=== PATIENT | male | born 1970 | race Caucasian/White ===

== ENCOUNTER → 2021-09-21 11:52 | Outpatient (BNVA) | payer OTHER, SELFPAY | PROVIDERS: Referring Provider Nurse Practitioner Family; Visit Provider Podiatrist Foot & Ankle Surgery | DX: M20.21 Hallux rigidus, right foot (principal); S99.191D Other physeal fracture of right metatarsal, subsequent encounter for fracture with routine healing; S92.901K Unspecified fracture of right foot, subsequent encounter for fracture with nonunion; M79.671 Pain in right foot; X58.XXXD Exposure to other specified factors, subsequent encounter | CPT/HCPCS: 73630; 99204; 99205 ==

== ENCOUNTER 2021-10-21 09:15 | Outpatient (CLI) | payer OTHER, BC, SELFPAY ==
--- NOTE | 2021-10-21 09:29 | USCV_ITS ---
Alireza De Leon Age: 51 Gender: M : 1970 Exam Date: 10/21/2021 09:45 Ordering Phys: Simón Nayak APRN, APRN Technologist: RUKHSANA [place] [facility] [place]ication: BLE PAIN Risk Factors: Previous Vascular Surgery: RIGHT LEFT BP: 143.0 / BP: 158.0/ 0 0 Waveform Velocity (cm/s) Velocity (cm/s) Waveform Triphasic 82.3 Iliac Prox 96.1 Triphasic Triphasic 95.7 Iliac Mid 100.5 Triphasic Triphasic 100.3 Iliac Distal 106.9 Triphasic Triphasic 59.8 OYSTER TONGER 113.5 Triphasic Triphasic 67.5 SFA Prox 107.0 Triphasic Triphasic 156.9 SFA Mid 0.0 N/A Biphasic SFA Dist Monophasic 203.1 190.0 Monophasic 42.7 POP 21.7 Monophasic Monophasic 42.2 DIRECTOR OF WORKFORCE DEVELOPMENT 47.9 Monophasic N/A 0.0 DPA 16.0 Monophasic FINDINGS UNABLE TO OBTAIN DALE'S/ RT DIRECTOR OF WORKFORCE DEVELOPMENT->220, RT DPA-NO FLOW LT DIRECTOR OF WORKFORCE DEVELOPMENT >220, LT DPA >220 REVERSED FLOW SEEN IN LEFT DPA Mild to moderate diffuse plaque in the iliac and femoral artery on the right side No Doppler flow signals in the left mid SFA. Heavy heterogeneous plaques in the distal SFA with the flow turbulence and velocity elevation. The posterior tibial artery Doppler examination revealed monophasic and continuous waveforms, bilaterally. Retrograde flow in the dorsalis pedis artery on the left side CONCLUSIONS 1. ABIs were not obtained because of the noncompressible vessels bilaterally the ankle 2. 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 Abnormal Doppler waveforms in the dorsalis pedis and posterior tibial arteries on this side, suggesting collateral filling of the posterior tibial artery and retrograde filling of the dorsalis pedis artery. 3. 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 No similar previous studies are available for comparison Dr Roger Mcgrath MD [facility] (Electronically Signed) Final Date: 21 October 2021 20:04 S
== END 2021-10-21 09:16 | disposition home or self-care (01) ==
PROVIDERS: Visit Provider Nurse Practitioner Family
DX: M79.605 Pain in left leg (principal); M79.604 Pain in right leg
CPT/HCPCS: 93925

== ENCOUNTER → 2021-11-02 11:06 | Outpatient (BNVA) | payer OTHER, BC, SELFPAY | PROVIDERS: Visit Provider Podiatrist Foot & Ankle Surgery | DX: S92.351A Displaced fracture of fifth metatarsal bone, right foot, initial encounter for closed fracture (principal); M19.071 Primary osteoarthritis, right ankle and foot; M20.21 Hallux rigidus, right foot; S92.909K Unspecified fracture of unspecified foot, subsequent encounter for fracture with nonunion; Y99.9 Unspecified external cause status | CPT/HCPCS: 73630; 99213; 99214 ==

== ENCOUNTER → 2021-12-21 08:58 | Outpatient (BNVA) | payer OTHER, SELFPAY | PROVIDERS: Visit Provider Podiatrist Foot & Ankle Surgery | DX: M20.21 Hallux rigidus, right foot (principal); S92.901K Unspecified fracture of right foot, subsequent encounter for fracture with nonunion; X58.XXXD Exposure to other specified factors, subsequent encounter | CPT/HCPCS: 73630; 99214 ==

== ENCOUNTER → 2022-01-25 08:42 | Outpatient (BNVA) | payer OTHER, SELFPAY | PROVIDERS: Visit Provider Podiatrist Foot & Ankle Surgery | DX: M20.21 Hallux rigidus, right foot (principal); S99.191K Other physeal fracture of right metatarsal, subsequent encounter for fracture with nonunion; X58.XXXD Exposure to other specified factors, subsequent encounter | CPT/HCPCS: 73630; 99214 ==

== ENCOUNTER → 2022-03-15 10:58 | Outpatient (BNVA) | payer OTHER, SELFPAY | PROVIDERS: Visit Provider Podiatrist Foot & Ankle Surgery | DX: S99.191K Other physeal fracture of right metatarsal, subsequent encounter for fracture with nonunion (principal); S92.901K Unspecified fracture of right foot, subsequent encounter for fracture with nonunion; X58.XXXD Exposure to other specified factors, subsequent encounter; M20.21 Hallux rigidus, right foot | CPT/HCPCS: 73630; 99214 ==

== ENCOUNTER → 2022-08-08 14:50 | Outpatient (BNVA) | payer OTHER, SELFPAY | PROVIDERS: Visit Provider Nurse Practitioner Family | DX: L81.4 Other melanin hyperpigmentation (principal); Z85.828 Personal history of other malignant neoplasm of skin; Z72.0 Tobacco use; D22.5 Melanocytic nevi of trunk; Z71.89 Other specified counseling; L85.3 Xerosis cutis; L57.8 Other skin changes due to chronic exposure to nonionizing radiation; L57.0 Actinic keratosis | CPT/HCPCS: 17004; 99213 ==

== ENCOUNTER 2022-10-05 15:12 | Emergency (ER) | payer OTHER, SELFPAY ==
[2022-10-05 15:16] VITALS: BP 131/77; PULSE 102; RESP 17; O2SAT 95
--- NOTE | 2022-10-05 15:21 | XR_ITS ---
WS: [id number] Exam: XR elbow RT min 3V* [id number] Date/Time of Exam: 10/05/2022 3:26 PM Reason For Exam: Pain There is mild cortical irregularity of the lateral margin of the radial head which may be secondary t o previous trauma. This does not have the appearance of an acute fracture. The remainder of the right elbow is intact. No joint effusion. Mild tendinous spurring seen along the lateral humeral epicondyl e. XR/XR elbow RT min 3V* [id number] IMPRESSION: 1. Slight cortical irregularity of the lateral margin of the radial head that d oes not have the appearance of an acute fracture. This could be secondary to pr ior trauma. 2. No acute fracture is suspected. No joint effusion.
--- NOTE | 2022-10-05 15:44 | W.ED.EXTPRO ---
HPI - Extremity Problem General: Chief complaint: Extremity Injury, Upper Stated complaint: right arm pain Time Seen by Provider: 10/05/22 15:21 Source: patient Mode of arrival: ambulatory History of Present Illness: 52-year-old male presents emergency room with complaint of right elbow pain he was rolling a log into a tractor. Arm flexed at the elbow and he felt a popping sensation in the area of the antecubital fossa. He had no direct trauma or fall. Began having pain with any pronation or supination. No other injury. MD Complaint: joint pain Pain Consistency: constant Location: right and elbow Quality: sharp Relieving factors: immobilization Exacerbating factors: range of motion and palpation Associated symptoms: Deny arthralgias, chest pain, fever(s), myalgias, rash or short of breath Review of Systems Const: Denies: fever(s) or chills Card: Denies: chest pain Resp: Denies: dyspnea, productive cough or non-productive cough GI: Denies: abdominal pain Musc: Reports: joint pain Skin/Breast: Denies: rash PFSH ED PFSH: Medical History Anxiety Depression GERD (gastroesophageal reflux disease) Hyperlipidemia Hypertension Hypertension Restless leg Surgical History Hx of hernia repair No pertinent past surgical history Family History Father CAD (coronary artery disease) Chronic kidney disease (CKD) Hypertension Grandfather Cancer Mother Diabetes Hypertension Denies family history of Clotting disorder Anesthesia complication Bleeding disorder Stroke Social History Smoking and tobacco status: current every day smoker cigarettes Packs smoked per day: 1.5 Years cigarettes smoked: 30 Second hand smoke exposure: No Alcohol intake: current Alcohol intake frequency: few times a month Alcohol type: beer and hard liquor Substance/Drug Use: never Adopted: No Caregiver/support person: Yes Lives independently: Yes Household members: none Marital status: service: Yes status: Medically Discharged/Retired branch: [employer] Current gender identity: Male Special breanne needs: No Physical Exam Const: COMMON NORMALS: no acute distress GENERAL APPEARANCE: cooperative and comfortable ORIENTATION/CONSCIOUSNESS: Yes awake, Yes oriented to person, Yes oriented to place and Yes oriented to time HENMT: COMMON NORMALS: normocephalic, atraumatic and hearing grossly normal bilaterally HEAD & SCALP: normocephalic and atraumatic Extremity: OTHER: Right elbow mild swelling patient is able to flex and extend but has moderate discomfort neurovascularly intact no obvious deformities Neuro: SENSORIUM/ORIENTATION: Yes oriented to person, Yes oriented to place and Yes oriented to time Skin: COMMON NORMALS: no rashes or lesions noted GENERAL SKIN EXAM: no rashes or lesions noted Course Vital Signs: Vital signs: Vital Signs Pulse Rate 112 H 10/05/22 15:57 Respiratory Rate 16 10/05/22 15:57 Blood Pressure 118/72 10/05/22 15:57 Pulse Oximetry 90 10/05/22 15:57 Oxygen Delivery Me thod Room Air 10/05/22 15:57 MDM - Extremity (Nontraumatic) Medical Decision Making Slight cortical irregularity on the lateral portion of the radial head. Patient refers most of the pain to the antecubital fossa no obvious deformity we will place him in a arm sling and follow-up with orthopedics may require further evaluation and possible advanced imaging pending their evaluation. Medical Records I reviewed the patient's medical records. Lab Data I reviewed the patient's lab results. Radiology Impressions Elbow X-Ray 10/05/22 15:21 IMPRESSION: 1. Slight cortical irregularity of the lateral margin of the radial head that does not have the appearance of an acute fracture. This could be secondary to prior trauma. 2. No acute fracture is suspected. No joint effusion. Discharge Plan Discharge Patient Disposition: Home Clinical Impression: Elbow pain, right Condition: Stable Prescriptions: New diclofenac sodium 75 mg tablet,delayed release (DR/EC) 75 mg PO Q12H PRN (Reason: pain) Qty: 20 0RF Discontinued diclofenac sodium 1 % gel 2 g topical QID Rx Instructions: apply to single elbow, wrist or hand; for hand includes palm/fingers/back of hand No Action atorvastatin 40 mg tablet 40 mg PO DAILY buspirone 10 mg tablet 10 mg PO DAILY cilostazol 50 mg tablet 50 mg PO BID ropinirole 5 mg tablet 5 mg PO DAILY venlafaxine 75 mg tablet 75 mg PO DAILY lisinopril 40 mg tablet 40 mg PO DAILY omeprazole 20 mg capsule,delayed release(DR/EC) 20 mg PO DAILY cyclobenzaprine 30 mg capsule,extended release 24hr 30 mg PO DAILY PRN lidocaine-epinephrine 1 %-1:100,000 solution 3 ml SUBCUT ONCE Qty: 20 0RF metformin 500 mg tablet 500 mg PO DAILY chlorthalidone 25 mg tablet 25 mg PO DAILY metoprolol succinate 25 mg tablet extended release 24 hr 25 mg PO DAILY PRN (DME) Bone stimulator See Rx Instructions .Route .MEDSUPPLY Qty: 1 0RF Rx Instructions: As directed (DME) low profile sport custom insoles with a mortons extension grafite See Rx Instructions .Route .MEDSUPPLY Qty: 1 0RF Rx Instructions: As directed Discharge Orders: Discharge ED (Routine); Ordered 10/05/22 Ordered By: Matt Flores Discharge Activity: Limit activity as instructed Patient Instructions: Opioid Safety, Pain Management Activity Restrictions/Additional Instructions: Recommend you wear the sling until evaluated by orthopedics. Use oral diclofenac instead of the topical 1 every 12 hours as needed Case management make arrangements for follow-up with orthopedic clinic. Coding Level of Care Code ED Graduate Assistant Athletic Trainer for Stanton Rasheed
[2022-10-05 15:57] VITALS: BP 118/72; PULSE 112; RESP 16; O2SAT 90
--- NOTE | 2022-10-06 10:39 | DCPLANNER ---
Addendum entered by Sophia Izquierdo 10/20/22 10:38: Patient had a follow up appointment scheduled with ortho - patient did attend appointment. Addendum entered by Sophia Izquierdo 10/10/22 13:34: Patient has a follow up appointment scheduled for Thursday, October 13, 2022 at 8:[address] Pal at ortho. Original Note: newspaper manager had message to schedule a follow up appointment for patient with ortho. newspaper manager sent patients information to the front office staff at ortho. Patients information will be printed and reviewed. Clinic will call patient with appointment information
--- NOTE | 2022-10-06 13:25 | DCPLANNER ---
district manager major accounts sales called patient due to no primary care physician - [facility]
== END 2022-10-05 16:05 | disposition home or self-care (01) ==
PROVIDERS: Emergency Provider Family Medicine
DX: M25.521 Pain in right elbow (principal); Z79.84 Long term (current) use of oral hypoglycemic drugs; E78.5 Hyperlipidemia, unspecified; I10 Essential (primary) hypertension; F17.210 Nicotine dependence, cigarettes, uncomplicated
CPT/HCPCS: 73080; 99283

== ENCOUNTER → 2022-12-11 08:42 | Outpatient (BNVA) | payer OTHER, SELFPAY | PROVIDERS: Visit Provider Podiatrist Foot & Ankle Surgery | DX: M72.2 Plantar fascial fibromatosis (principal); M20.21 Hallux rigidus, right foot; M20.22 Hallux rigidus, left foot | CPT/HCPCS: 99213 ==

== ENCOUNTER → 2023-02-06 09:07 | Outpatient (BNVA) | payer OTHER, SELFPAY | PROVIDERS: PCP Family Medicine; Visit Provider Nurse Practitioner Family | DX: L57.0 Actinic keratosis (principal); Z85.828 Personal history of other malignant neoplasm of skin; L81.4 Other melanin hyperpigmentation; D22.5 Melanocytic nevi of trunk; L85.3 Xerosis cutis | CPT/HCPCS: 17000; 99213 ==

== ENCOUNTER → 2023-09-25 08:52 | Outpatient (BNVA) | payer OTHER, SELFPAY | PROVIDERS: PCP Family Medicine; Visit Provider Dermatology | DX: C44.41 Basal cell carcinoma of skin of scalp and neck (principal) | CPT/HCPCS: 13132; 17311 ==

== ENCOUNTER 2023-11-20 10:31 | Outpatient (CLI) | payer OTHER, SELFPAY ==
--- NOTE | 2023-11-20 10:34 | MR_ITS ---
WS: [id number] MRI LUMBAR SPINE NONCONTRAST TECHNIQUE: Sagittal T1, T2 and STIR imaging. Axial T1 and T2 imaging. CLINICAL INFORMATION: WORSENING LOW BACK PAIN W/SCIATICA FINDINGS: Mild lumbar curve. No acute compression. Mild disc bulging worse at L3-L5. Endplate degenerative moralez ges inferior plate L3. L1-L2: Mild annular bulging. Slight narrowing the RIGHT subarticular recess. Mild facet arthropathy. Mild RIGHT foraminal narrowing. L2-L3: Mild annular bulging. Small RIGHT foraminal protrusion with mild RIGHT foraminal narrowing. Im pingement on the exiting RIGHT L2 nerve root. Mild facet arthropathy. L3-L4: Mild annular bulging. Mild central canal stenosis with narrowing of the subarticular recesses RIGHT greater than LEFT. RIGHT foraminal protrusion impinges the exiting RIGHT L3 nerve root. Mild LE FT foraminal narrowing. Moderate facet arthropathy. L4-L5: Shallow central disc bulging with mild central canal stenosis. Moderate facet arthropathy. LEF T foraminal protrusion with mild LEFT foraminal narrowing. Moderate facet arthropathy. L5-S1: LEFT eccentric disc bulging slightly impinges the exiting LEFT L5 nerve roots with mild LEFT f oraminal narrowing. Mild RIGHT foraminal narrowing. Spinal canal is patent. Moderate facet arthropath y. Visualized pelvic bony structures: Normal. Paravertebral soft tissues: Normal. Partially visualized LEFT renal cyst. MR/MR lumbar spine wo con* [id number] IMPRESSION: 1. Mild lumbar curve. No acute compression. 2. Mild central canal stenosis L3-L4 and L4-L5 due to disc bulging in combinat ion with facet arthropathy and prominent epidural fat. Narrowing of the thecal sac at these levels. Impingement on the LEFT greater than RIGHT subarticular re cess L4-5 with a shallow central protrusion. Narrowing of the RIGHT L3-4 subart icular recess. 3. RIGHT foraminal protrusion L3-4 with impingement on the exiting RIGHT L3 ne rve root. 4. Small LEFT foraminal protrusion L4-5 slightly impinges the exiting LEFT L4 nerve root. 5. Narrowing of the RIGHT L1-2 subarticular recess with a tiny RIGHT subarticu lar protrusion. 6. RIGHT foraminal protrusion L2-3 impinges the exiting RIGHT L2 nerve root. 7. Mild LEFT L5-S1 foraminal narrowing slightly impinges the exiting L5 nerve root.
== END 2023-11-20 10:32 | disposition home or self-care (01) ==
LOC: RAD 10:32
PROVIDERS: PCP Family Medicine; Visit Provider Family Medicine
DX: M51.36 Other intervertebral disc degeneration, lumbar region (principal); M47.896 Other spondylosis, lumbar region; M47.898 Other spondylosis, sacral and sacrococcygeal region
CPT/HCPCS: 72148

== ENCOUNTER → 2024-01-10 14:13 | Outpatient (BNVA) | payer OTHER, SELFPAY | PROVIDERS: PCP Family Medicine; Visit Provider Orthopaedic Surgery | DX: M54.50 Low back pain, unspecified (principal); Z09 Encounter for follow-up examination after completed treatment for conditions other than malignant neoplasm; M48.062 Spinal stenosis, lumbar region with neurogenic claudication | CPT/HCPCS: 72110; 99205 ==

== ENCOUNTER 2024-01-23 10:55 | Outpatient (CLI) | payer OTHER, SELFPAY ==
[2024-01-23 11:50] LABS: Bilirubin Urine Negative (Negative); Blood Urine Negative (Negative); Glucose Urine UA 3+ (Normal); Ketones Urine Negative (Negative); Leukocyte Esterase Urine Negative (Negative); Nitrate Urine Negative (Negative); Protein Urine Negative (Negative); Specific Gravity, Urine 1.021 (1.005-1.030); Urine Appearance Clear (CLEAR); Urine Color Yellow (Yellow); Urobilinogen Urine 0.2 mg/dL (Negative); pH Urine 5.5 (5-7)
[2024-01-23 11:55] LABS: Add Urine Microscopic? YES; Bacteria Urine None Seen /hpf; Hyaline Casts Urine 0.81 /lpf; RBC Urine 0-2 /hpf (0-2); Squamous Epithelial Cell Urine 0-5 /hpf (0-5); WBC Urine 0-5 /hpf (0-5)
[2024-01-23 12:00] LABS: Alanine Aminotransferase 32 U/L (0-41); Albumin Level 4.9 g/dL (3.5-5.2); Alkaline Phosphatase 77 U/L (40-130); Anion Gap 15.4 (5-19); Aspartate Amino Transferase 19 U/L (0-40); Blood Urea Nitrogen 25 mg/dL (6-20); Calcium 9.8 mg/dL (8.5-10.5); Carbon Dioxide 25 mmol/L (22-29); Chloride 100 mmol/L (98-107); Estmated Average Glucose 148; Glomerular Filtration Rate 45.1 mL/min (90-130); Glucose 131 mg/dL (65-115); Hemoglobin A1C 6.8 % (4.0-6.0); Osmolality Calculated 288 mOsm/kg (285-295); Potassium 4.4 mmol/L (3.5-5.1); Sodium 136 mmol/L (136-145); Total Bilirubin 0.3 mg/dL (0.15-1.2); Total Protein 6.9 g/dL (6.6-8.7)
[2024-01-23 12:35] LABS: Basophils # 0.1 10^3/uL (0.0-0.1); Basophils % 0.6 %; Eosinophils # 0.2 10^3/uL (0.0-0.8); Lymphocytes # 2.1 10^3/uL (0.8-4.8); Lymphocytes % 20.6 %; Mean Corpuscular HGB Conc 33.7 g/dL (30-55); Mean Corpuscular Hemoglobin 29.5 pg (27-33); Mean Corpuscular Volume 87.6 fl (82-101); Mean Platelet Volume 10.5 fL (7.4-10.4); Monocytes # 0.6 10^3/uL (0.2-0.9); Monocytes % 5.3 %; Neutrophils # 7.37 10^3/uL (1.8-7.7); Neutrophils % 71.1 %; Nucleated Red Blood Cells % 0 %; Platelet Count 243 10^3/cmm (157-399); Red Blood Count 5.25 10^6/uL (3.85-5.65); Red Cell Distribution Width 13.7 % (12.1-15.1); White Blood Count 10.36 10^3/uL (3.29-11.43)
== END 2024-01-23 10:56 | disposition home or self-care (01) ==
PROVIDERS: PCP Family Medicine; Visit Provider Orthopaedic Surgery
DX: M54.9 Dorsalgia, unspecified (principal)
CPT/HCPCS: 36415; 80053; 81001; 83036; 85025

== ENCOUNTER → 2024-02-06 09:42 | Outpatient (BNVA) | payer OTHER, SELFPAY | PROVIDERS: PCP Family Medicine; Visit Provider Family Medicine | DX: Z01.818 Encounter for other preprocedural examination (principal) | CPT/HCPCS: 93005 ==

== ENCOUNTER → 2024-02-11 13:27 | Outpatient (BNVA) | payer OTHER, SELFPAY | PROVIDERS: PCP Family Medicine; Visit Provider Nurse Practitioner Family | DX: L81.4 Other melanin hyperpigmentation (principal); L57.8 Other skin changes due to chronic exposure to nonionizing radiation; D22.5 Melanocytic nevi of trunk; B07.8 Other viral warts; L53.8 Other specified erythematous conditions; L29.89 Other pruritus; D48.5 Neoplasm of uncertain behavior of skin; L57.0 Actinic keratosis | CPT/HCPCS: 11102; 17000; 17110; 99213 ==

== ENCOUNTER 2024-02-18 05:38 | Day surgery (SDC) | payer OTHER, SELFPAY ==
[2024-02-18] VITALS (13 sets, daily range): BP systolic 107–137; BP diastolic 63–82; PULSE 61–81; RESP 12–22; TEMP 36.2–37.2; O2SAT 92–97; BMI 34.8
[2024-02-18 06:22] LABS: Glucose Point of Care 158 mg/dL (70-110)
[2024-02-18] MEDS: sodium chloride 0.9% 1,000 ML 30 ML IV (06:25)
--- NOTE | 2024-02-18 06:29 | P.ANESASSM_ITS ---
Pre-Anesthetic Assessment Height/Weight: Height 5 ft 11 in Weight 250 lb Temp Pulse Resp BP Pulse Ox O2 Del Method 97.2 F L 61 18 110/69 96 Room Air 02/18/24 06:14 02/18/24 06:14 02/18/24 06:14 02/18/24 06:14 02/18/24 06:14 02/18/24 06:14 Preop Diagnosis: Lumbar stenosis with neurogenic claudication Operation Date: 02/18/24 07:00 Proposed Procedures p Lumbar Spine Decompression Lumbar Decompression(Not Applicable) - Harlan Quiros, DO Was Beta Flower taken within 24 hours: N/A Was Clonidine taken within 24 hours: N/A Last intake: Intake Last Liquid Date 02/17/24 Last Liquid Time 19:00 Last Solid Date 02/17/24 Last Solid Time 19:00 Social Alcohol and Tobacco Weekend drinker Exam alert, oriented x 3 and regular rate & rhythm Diminished breath sounds bilaterally Airway Submandibular: within normal limits Cervical ROM: within normal limits Mallampati: Class III Dentition: full Comments: Comments: Large reyes Anesthetic Plan ASA status: 3 Anesthesia: General Other: No prior issues with anesthesia NPO since yesterday Patient has a history of hypertension on chlorthalidone, lisinopril and metoprol ol. Type 2 diabetes on glipizide and metformin, no insulin. Preop BS 158 Labs 01/23/2024 reviewed and acceptable for procedure EKG showing probable old anterior [place], sinus rhythm Current smoker Plan for GETA Medications/Allergies Home Medications Medication Instructions Recorded Confirmed Last Taken Type cyclobenzaprine 30 mg 30 mg PO DAILY 03/02/21 02/18/24 2 Weeks Ago History capsule,extended release 24 hr ~02/04/24 lisinopril 40 mg tablet 40 mg PO DAILY 03/02/21 02/13/24 02/17/24 History buspirone 10 mg tablet 10 mg PO DAILY 05/13/21 02/13/24 02/17/24 History cilostazol 50 mg tablet 50 mg PO BID 05/13/21 02/18/24 2 Weeks Ago History ~02/04/24 ropinirole 5 mg tablet 5 mg PO DAILY 05/13/21 02/18/24 1 Week Ago History ~02/11/24 venlafaxine 75 mg tablet 75 mg PO DAILY 05/13/21 02/13/24 02/17/24 History Bone stimulator #1 ea 11/23/21 01/10/24 Unknown Rx low profile sport custom insoles #1 ea 11/23/21 01/10/24 Unknown Rx with a mortarnulfo extension nadeem chlorthalidone 25 mg tablet 25 mg PO DAILY 01/09/22 02/13/24 02/17/24 History metformin 500 mg tablet 500 mg PO DAILY 01/09/22 02/13/24 02/15/24 History diclofenac sodium 75 mg 75 mg PO Q12H PRN pain #20 tabs 10/05/22 02/18/24 02/16/24 Rx tablet,delayed release Custom Co-poly Insoles #1 ea 03/01/23 01/10/24 Unknown Rx aspirin 81 mg tablet,delayed 81 mg PO DAILY 02/06/24 02/18/24 2 Weeks Ago History release ~02/04/24 cetirizine 10 mg tablet 10 mg PO DAILY PRN Allergic 02/06/24 02/13/24 02/17/24 History Symptoms clopidogrel 75 mg tablet 75 mg PO DAILY 02/06/24 02/13/24 02/13/24 History empagliflozin 10 mg tablet 10 mg PO DAILY 02/06/24 02/13/24 02/16/24 History fexofenadine 180 mg tablet 180 mg PO DAILY 02/06/24 02/13/24 02/17/24 History fluticasone propionate 50 1 spray intranasal DAILY 02/06/24 02/18/24 1 Week Ago History mcg/actuation nasal ~02/11/24 spray,suspension glipizide 10 mg tablet 10 mg PO DAILY 02/06/24 02/13/24 02/15/24 History metoprolol succinate 25 mg 25 mg PO DAILY 02/06/24 02/13/24 02/17/24 History tablet,extended release 24 hr pantoprazole 40 mg tablet,delayed 40 mg PO DAILY 02/06/24 02/18/24 02/16/24 History release rosuvastatin 10 mg tablet 10 mg PO DAILY 02/06/24 02/13/24 02/17/24 History tamsulosin 0.4 mg capsule 0.4 mg PO DAILY 02/06/24 02/13/24 02/17/24 History gemfibrozil 600 mg tablet 600 mg PO BID 02/18/24 02/18/2424 History Allergies Allergy/AdvReac Type Severity Reaction Status Date / Time No Known Allergies Allergy Verified 02/06/24 09:58 Current Medications Generic Name Dose Route Start Last Admin Trade Name Safia PRN Reason Stop Dose Admin Sodium Chloride 1,000 mls @ 30 mls/hr 02/18/24 06:00 02/18/24 06:25 Sodium Chloride 0.9% IV 02/19/24 05:59 30 mls/hr .Q24H GEORGE Administration PFSH Anesthesia Medical History Hypertension Hyperlipidemia Depression Anxiety Restless leg GERD (gastroesophageal reflux disease) Hypertension Surgical History No pertinent past surgical history Hx of hernia repair Family History Father CAD (coronary artery disease) Chronic kidney disease (CKD) Hypertension Grandfather Cancer Mother Diabetes Hypertension Denies family history of Clotting disorder Anesthesia complication Bleeding disorder Stroke Social History Smoking and tobacco/nicotine status: never used tobacco/nicotine Second hand smoke exposure: No Alcohol intake: current Alcohol intake frequency: few times a month Alcohol type: beer and hard liquor Substance/Drug Use: never Adopted: No Caregiver/support person: Yes Lives independently: Yes Household members: none Marital status: service: Yes status: Medically Discharged/Retired branch: [employer] Current gender identity: Male Special breanne needs: No Data Anesthesia Cardiac Studies: No Data to Display
--- NOTE | 2024-02-18 06:32 | W.PM.OPSUD ---
Surgery/Procedure H&P Update DATE OF PROCEDURE: February 18, 2024 DATE H&P PERFORMED: 02/06/24 H&P UPDATE INFORMATION: I have reviewed H&P completed within last 30 days, I have examined patient prior to procedure and No changes to prior documentation PREOP DIAGNOSIS: Lumbar stenosis with neurogenic claudication PLANNED PROCEDURE: Operation Date: 02/18/24 07:00 Proposed Procedures p Lumbar Spine Decompression Lumbar Decompression(Not Applicable) - Harlan Quiros DO
[2024-02-18] MEDS: ceFAZolin 2,000 mg SDV 2000 MG IVP (07:01)
[2024-02-18] MEDS: lidocaine-epi 1% 20 mL INJ 10 ML INJECTION (07:36)
--- NOTE | 2024-02-18 09:01 | P.OP_ITS ---
Operative Report Date of procedure: February 18, 2024 Pre-op diagnosis: Lumbar stenosis with neurogenic claudication Post-op diagnosis: same Procedure done: 1. L3-4 laminectomy with partial facetectomy 2. L4-5 laminectomy with partial facetectomy 3. L5-S1 laminectomy with partial facetectomy Surgeon: Harlan Quiros DO Estimated blood loss (mL): 20 Procedure: 1. L3-4 laminectomy with partial facetectomy 2. L4-5 laminectomy with partial facetectomy 3. L5-S1 laminectomy with partial facetectomy Patient is brought to the operative suite. After undergoing anesthesia they are placed in the prone position. All areas of impingement are well padded. Patient is then prepped and draped in the normal sterile fashion. A skin incision is made over the L3/4 level. This is confirmed under c-arm guidance. A series of dilators are passed and the tubular retractor is docked on the L3 lamina. A bovie is used to clear the soft tissue off the lamina and the L 3/4 facet joint. A high speed yolanda is then used to perform the laminectomy and take down the medial aspect of the L 3/4 facet joint. A kerrison rongeure was then used to take down the remaining lamina and smooth the edge of the laminectomy up to the point where the ligamentum flavum attaches. Attention was then brought to the medial aspect of the facet joint. The remaining medial aspect of the superior and inferior aspect of the facet joint were taken down with the kerrison from the pedicle of L3 to L 4. The facet lia int had significant hypertrophy. Attention was then brought to the Ligamentum Flavum. The ligament was taken down from the lamina of L3 to L4 and out medially to the remaining facet joint. The ligament was thick. The dura was then exposed. The dura was in good repair. The L3 nerve was then traced with a curette out the L3/4 foramen and found to be adequately decompressed. The L4 nerve was traced with a curette around the L4 pedicle. The lateral recess was opened with a kerrison helping to further decompress the L4 nerve. Wound is then irrigated copiously with saline and surgiflo is used to stop any bleeding. The tubular retractor is removed A skin incision is made over the L4/5 level. This is confirmed under c-arm guidance. A series of dilators are passed and the tubular retractor is docked on the L4 lamina. A bovie is used to clear the soft tissue off the lamina and the L 4/5 facet joint. A high speed yolanda is then used to perform the laminectomy and take down the medial aspect of the L 4/5 facet joint. A kerrison rongeure was then used to take down the remaining lamina and smooth the edge of the laminectomy up to the point where the ligamentum flavum attaches. Attention was then brought to the medial aspect of the facet joint. The remaining medial aspect of the superior and inferior aspect of the facet joint were taken down with the kerrison from the pedicle of L4 to L 5. The facet joint had significant hypertrophy. Attention was then brought to the Ligamentum Flavum. The ligament was taken down from the lamina of L4 to L5 and out medially to the remaining facet joint. The ligament was thick. The dura was then exposed. The dura was in good repair. The L4 nerve was then traced with a curette out the L4/5 foramen and found to be adequately decompressed. The L5 nerve was traced with a curette around the L5 pedicle. The lateral recess was opened with a kerrison helping to further decompress the L5 nerve. Wound is then irrigated copiously with saline and surgiflo is used to stop any bleeding. The tubular retractor is removed A skin incision is made over the L5/S1 level. This is confirmed under c-arm guidance. A series of dilators are passed and the tubular retractor is docked on the L5 lamina. A bovie is used to clear the soft tissue off the lamina and the L 5/S1 facet joint. A high speed yolanda is then used to perform the laminectomy and take down the medial aspect of the L 5/S1 facet joint. A kerrison rongeure was then used to take down the remaining lamina and smooth the edge of the laminectomy up to the point where the ligamentum flavum attaches. Attention was then brought to the medial aspect of the facet joint. The remaining medial aspect of the superior and inferior aspect of the facet joint were taken down with the kerrison from the pedicle of L5 to S1. The facet joint had significant hypertrophy. Attention was then brought to the Ligamentum Flavum. The ligament was taken down from the lamina of L5 to S1 and out medially to the remaining facet joint. The ligament was thick. The dura was then exposed. The dura was in good repair. The L5 nerve was then traced with a curette out the L5/S1 foramen and found to be adequately decompressed. The S1 nerve was traced with a curette around the S1 pedicle. The lateral recess was opened with a kerrison helping to further decompress the S1 nerve. Wound is then irrigated copiously with saline and surgiflo is used to stop any bleeding. The tubular retractor is removed and the wound is closed with vicryl and monocryl suture. Glue is then used to protect the wound. A sterile dressing is then placed. Patient was then placed in the supine position and transferred to the PACU in stable condition.
[2024-02-18] MEDS: fentaNYL 50 mcg/mL INJ 2mL IVP (09:10)
[2024-02-18] MEDS: HYDROcodone-acetaminophen 5-325 mg Tablet 2 TAB PO (09:45)
[2024-02-18] MEDS: ondansetron 2 mg/ML SDV 2 mL 4 MG IVP (09:53)
--- NOTE | 2024-02-18 10:29 | ANE.PACU2 ---
Inpatient post-anesthesia follow up: Airway intact: Yes Vital signs: Temperature 99 F Pulse Rate 69 Respiratory Rate 18 Blood Pressure 124/82 Pulse Oximetry 97 Oxygen Delivery Me thod Room Air Oxygen Flow Rate 8 Fraction of Inspir ed Oxygen Hydration adequate: Yes Nausea and vomiting: No Pain level: 1 Mental status: Baseline
--- NOTE | 2024-02-18 13:54 | XR_ITS ---
WS: [id number] XR lumbar spine 1V [id number] REASON FOR EXAM: or pic, decompression FINDINGS: Surgical device overlies the right L4-L5 disc space initially and then the right L3-L4 disc space. XR/XR lumbar spine 1V [id number] IMPRESSION: Lumbar localization and surgery as above.
== END 2024-02-18 10:29 | disposition home or self-care (01) ==
PROVIDERS: PCP Family Medicine; Visit Provider Orthopaedic Surgery
PROC: (CPT 63005; principal; 2024-02-18 07:00)
DX: M48.062 Spinal stenosis, lumbar region with neurogenic claudication (principal); E11.22 Type 2 diabetes mellitus with diabetic chronic kidney disease; I12.9 Hypertensive chronic kidney disease with stage 1 through stage 4 chronic kidney disease, or unspecified chronic kidney disease; N18.9 Chronic kidney disease, unspecified; Z79.84 Long term (current) use of oral hypoglycemic drugs; I25.2 Old myocardial infarction; F17.200 Nicotine dependence, unspecified, uncomplicated; E78.5 Hyperlipidemia, unspecified; F32.A Depression, unspecified; F41.9 Anxiety disorder, unspecified; K21.9 Gastro-esophageal reflux disease without esophagitis; Z95.5 Presence of coronary angioplasty implant and graft; G47.33 Obstructive sleep apnea (adult) (pediatric); Z99.89 Dependence on other enabling machines and devices
CPT/HCPCS: 63047; 63048 ×2; 36416; 72020; 76000; 82962; J0330; J0690; J1100; J2250; J2405; J2704; J2710; J3010; J3490; J7030

== ENCOUNTER → 2024-03-04 13:54 | Outpatient (BNVA) | payer OTHER, SELFPAY | PROVIDERS: PCP Family Medicine; Visit Provider Orthopaedic Surgery | DX: Z98.890 Other specified postprocedural states (principal) | CPT/HCPCS: 99024 ==

== ENCOUNTER → 2024-03-18 10:43 | Outpatient (BNVA) | payer OTHER, SELFPAY | PROVIDERS: PCP Family Medicine; Visit Provider Nurse Practitioner Family | DX: L57.8 Other skin changes due to chronic exposure to nonionizing radiation (principal); C44.519 Basal cell carcinoma of skin of other part of trunk; B07.8 Other viral warts; L29.89 Other pruritus; L53.8 Other specified erythematous conditions | CPT/HCPCS: 17110; 17261; 99213 ==

== ENCOUNTER → 2024-04-01 08:23 | Outpatient (BNVA) | payer OTHER, SELFPAY | PROVIDERS: PCP Family Medicine; Visit Provider Orthopaedic Surgery | DX: Z98.890 Other specified postprocedural states (principal) | CPT/HCPCS: 99024 ==

== ENCOUNTER → 2024-04-25 09:52 | Outpatient (BNVA) | payer OTHER, SELFPAY | PROVIDERS: PCP Family Medicine; Visit Provider Nurse Practitioner Family | DX: L30.0 Nummular dermatitis (principal); L57.8 Other skin changes due to chronic exposure to nonionizing radiation; B07.8 Other viral warts; L29.89 Other pruritus; L53.8 Other specified erythematous conditions; Z78.9 Other specified health status; L57.0 Actinic keratosis | CPT/HCPCS: 17000; 17110; 99213 ==

== ENCOUNTER → 2024-05-13 08:17 | Outpatient (BNVA) | payer OTHER, SELFPAY | PROVIDERS: PCP Family Medicine; Visit Provider Orthopaedic Surgery | DX: Z98.890 Other specified postprocedural states (principal) | CPT/HCPCS: 99024 ==

== ENCOUNTER → 2024-05-26 10:47 | Outpatient (BNVA) | payer OTHER, SELFPAY | PROVIDERS: PCP Family Medicine; Visit Provider Nurse Practitioner Family | DX: L57.8 Other skin changes due to chronic exposure to nonionizing radiation (principal); L81.4 Other melanin hyperpigmentation; Z08 Encounter for follow-up examination after completed treatment for malignant neoplasm; Z85.828 Personal history of other malignant neoplasm of skin; B07.8 Other viral warts; L29.89 Other pruritus; L53.8 Other specified erythematous conditions; Z78.9 Other specified health status | CPT/HCPCS: 17110; 99213 ==

== ENCOUNTER → 2024-08-04 07:54 | Outpatient (BNVA) | payer OTHER, SELFPAY | PROVIDERS: PCP Family Medicine; Visit Provider Nurse Practitioner Family | DX: L81.4 Other melanin hyperpigmentation (principal); L57.8 Other skin changes due to chronic exposure to nonionizing radiation; D22.4 Melanocytic nevi of scalp and neck; Z08 Encounter for follow-up examination after completed treatment for malignant neoplasm; Z85.828 Personal history of other malignant neoplasm of skin; D48.5 Neoplasm of uncertain behavior of skin; L57.0 Actinic keratosis | CPT/HCPCS: 11102; 17000; 99213 ==

== ENCOUNTER → 2024-10-02 15:24 | Outpatient (BNVA) | payer OTHER, SELFPAY | PROVIDERS: PCP Family Medicine; Visit Provider Orthopaedic Surgery | DX: Z98.890 Other specified postprocedural states (principal); M54.9 Dorsalgia, unspecified | CPT/HCPCS: 72100; 99213 ==

== ENCOUNTER 2024-10-13 07:00 | Outpatient (CLI) | payer OTHER, SELFPAY ==
--- NOTE | 2024-10-13 07:15 | MR_ITS ---
WS: [id number] MRI LUMBAR SPINE NONCONTRAST HISTORY: Back Pain COMPARISON: 11/20/2023, radiograph 10/02/2024 TECHNIQUE: Sagittal and axial multisequence imaging is submitted. Small central disc osteophytes at C3-4 and C5-6. Slight straightening of the normal lumbar lordosis. L1 hemangioma. L3 retrolisthesis by 2 mm is new. Degenerative changes reidentified along the inferior endplate of L3. Small amount of marrow edema in the mid L3 vertebral body. No acute compression fractures. Additional small amount of marrow edema al batool the superior endplate of S1. Disc spaces are mildly desiccated. Conus terminates normally at L1-2 disc level. L1-L2: Mild disc bulging with a shallow RIGHT paracentral disc protrusion and osteophyte. Mild facet and ligamentum flavum hypertrophy. Mild bilateral foraminal stenosis, RIGHT greater than LEFT. L2-L3: Diffuse annular disc bulging with a RIGHT foraminal disc osteophyte resulting in moderate RIGHT and mild LEFT foraminal stenosis. Mild facet and ligamentum flavum hypertrophy. L3-L4: Mild disc bulging. New since the prior examination is a RIGHT hemilaminectomy defect and a small central disc osteophyte. Bilateral foraminal osteophytes and facet arthritis. Persistent mild central and subarticular recess and LEFT foraminal stenosis. Moderate RIGHT foraminal stenosis. Fluid in the facet joints. L4-L5: Diffuse annular disc bulging with a central disc protrusion. Diffuse osteophytic ridging. RIGHT hemilaminectomy defect. Moderate facet joint arthropathy. Mild central stenosis. Mild bilateral foraminal stenosis, RIGHT greater than LEFT. Fluid in the facet joints. L5-S1: Diffuse annular disc bulging with osteophytic ridging. Facet joint arthropathy. RIGHT hemilaminectomy defect. Fluid in the facet joints. Mild diffuse osteophytic ridging. Bilateral foraminal stenosis. Moderate facet arthritis. Cystic mass in the LEFT kidney. Poorly visualized. MR/MR lumbar spine wo con* [id number] IMPRESSION: 1. Status post RIGHT hemilaminectomy defects at L3-4, L4-5 and L5-S1. 2. Central canal stenosis and subarticular recess and foraminal stenosis at L3 -4, L4-5 and L5-S1. 3. Shallow RIGHT paracentral disc protrusion at L1-2. 4. L2-3: RIGHT foraminal disc osteophyte resulting in moderate RIGHT foraminal stenosis. Mild LEFT foraminal stenosis. 5. L3-4: Small central disc osteophyte is new. Moderate RIGHT and mild LEFT fo raminal stenosis. Disc contacts the RIGHT traversing L4 nerve root. Most signif icant stenosis on the RIGHT at L3-4 with additional contact on the exiting RIGH T L3 nerve root. 6. L4-5: Mild bilateral foraminal stenosis, RIGHT greater than LEFT. 7. Mild bilateral foraminal stenosis at L5-S1.
== END 2024-10-13 07:01 | disposition home or self-care (01) ==
LOC: RAD 07:01
PROVIDERS: PCP Family Medicine; Visit Provider Orthopaedic Surgery
DX: M48.061 Spinal stenosis, lumbar region without neurogenic claudication (principal); M48.07 Spinal stenosis, lumbosacral region; M25.78 Osteophyte, vertebrae
CPT/HCPCS: 72148

== ENCOUNTER → 2024-10-14 12:56 | Outpatient (BNVA) | payer OTHER, SELFPAY | PROVIDERS: PCP Family Medicine; Visit Provider Orthopaedic Surgery | DX: M48.062 Spinal stenosis, lumbar region with neurogenic claudication (principal); Z98.890 Other specified postprocedural states; Z09 Encounter for follow-up examination after completed treatment for conditions other than malignant neoplasm | CPT/HCPCS: 99214 ==

== ENCOUNTER 2024-10-17 05:00 | Outpatient (RCR) | payer OTHER, SELFPAY | END 2024-11-16 23:59 | disposition home or self-care (01) | LOC: TPT 05:00 | PROVIDERS: Visit Provider Orthopaedic Surgery | DX: M54.50 Low back pain, unspecified (principal); G89.29 Other chronic pain | CPT/HCPCS: 97110; 97161 ==

== ENCOUNTER → 2024-11-11 10:49 | Outpatient (BNVA) | payer OTHER, SELFPAY | PROVIDERS: PCP Family Medicine; Referring Provider Family Medicine; Visit Provider Anesthesiology Pain Medicine | DX: M25.551 Pain in right hip (principal); M25.552 Pain in left hip; M48.062 Spinal stenosis, lumbar region with neurogenic claudication; M47.816 Spondylosis without myelopathy or radiculopathy, lumbar region; Z98.890 Other specified postprocedural states | CPT/HCPCS: 73521; 99204 ==

== ENCOUNTER → 2024-11-12 10:17 | Outpatient (BNVA) | payer OTHER, SELFPAY | PROVIDERS: PCP Family Medicine; Referring Provider Family Medicine; Visit Provider Internal Medicine Cardiovascular Disease | DX: I25.10 Atherosclerotic heart disease of native coronary artery without angina pectoris (principal); I10 Essential (primary) hypertension; I73.9 Peripheral vascular disease, unspecified; E78.5 Hyperlipidemia, unspecified; Z79.02 Long term (current) use of antithrombotics/antiplatelets; Z79.82 Long term (current) use of aspirin; F17.210 Nicotine dependence, cigarettes, uncomplicated; R07.9 Chest pain, unspecified; R06.02 Shortness of breath; R06.09 Other forms of dyspnea; R58 Hemorrhage, not elsewhere classified | CPT/HCPCS: 36415; 80048; 80061; 85025; 85610; 93005; 99204 ==

== ENCOUNTER 2024-11-17 05:00 | Outpatient (RCR) | payer OTHER, SELFPAY | END 2024-12-16 23:59 | disposition home or self-care (01) | LOC: TPT 05:00 | PROVIDERS: PCP Family Medicine; Visit Provider Orthopaedic Surgery | DX: M54.50 Low back pain, unspecified (principal); G89.29 Other chronic pain | CPT/HCPCS: 97110; 97140 ==

== ENCOUNTER → 2024-11-24 10:16 | Outpatient (BNVA) | payer OTHER, SELFPAY | PROVIDERS: PCP Family Medicine; Visit Provider Anesthesiology Pain Medicine | DX: M48.062 Spinal stenosis, lumbar region with neurogenic claudication (principal); Z98.890 Other specified postprocedural states; M47.816 Spondylosis without myelopathy or radiculopathy, lumbar region; M16.0 Bilateral primary osteoarthritis of hip | CPT/HCPCS: 99214 ==

== ENCOUNTER 2024-11-25 08:19 | Outpatient (CLI) | payer OTHER, SELFPAY ==
[2024-11-25] VITALS (25 sets, daily range): BP systolic 110–144; BP diastolic 54–84; PULSE 61–79; RESP 9–22; TEMP 36.6; O2SAT 92–96; BMI 35.5
[2024-11-25 08:55] LABS: Hematocrit 44.6 % (37-53); Hemoglobin 14.80 g/dL (11.27-16.99); Mean Corpuscular HGB Conc 33.2 g/dL (30-55); Mean Corpuscular Hemoglobin 28.4 pg (27-33); Mean Corpuscular Volume 85.4 fl (82-101); Nucleated Red Blood Cells % 0 %; Platelet Count 217 10^3/cmm (157-399); Red Blood Count 5.22 10^6/uL (3.85-5.65); White Blood Count 10.16 10^3/uL (3.29-11.43)
[2024-11-25 09:11] LABS: Anion Gap 18.9 (5-19); Blood Urea Nitrogen 17 mg/dL (6-20); Calcium 10.8 mg/dL (8.5-10.5); Carbon Dioxide 26 mmol/L (22-29); Chloride 98 mmol/L (98-107); Creatinine Clr Calc Pharmacy 89.9646; Glucose 230 mg/dL (65-115); Osmolality Calculated 297 mOsm/kg (285-295); Potassium 3.9 mmol/L (3.5-5.1); Sodium 139 mmol/L (136-145)
--- NOTE | 2024-11-25 10:00 | XACV_ITS ---
Exam Room: 2 Ht: 180 cm Wt: 116 kg BSA: 2.45 m2 Gender: Male : 1970 Any Known Allergies: No known allergies Exam Priority: Routine Procedure(s): Procedure Description: Diagnostic procedure Procedure Description: Left Heart Catheterization Procedure Description: Left ventriculography Procedure Description: Coronary Angiography Albert ROCKWELL; Diagnostic Cath Status: Elective Diagnostic Findings * Left Main has no disease. * Circumflex has no disease. * Mid Left Anterior Descending: obstructive 60% stenosis, ELIZABETH: 3 flow. * Distal Left Anterior Descending to AV groove continuation of Circumflex Artery collaterallization. * Proximal Right Coronary Artery to Distal Right Coronary Artery: total occlusion, ELIZABETH: 0 flow. * Coronary angiography shows right dominance. Conclusions 1. There is total occlusion coronary artery disease with two vessel disease. 2. Hyperdynamic left ventricular systolic function. Ejection fraction of 75%. Recommendations * Continue current medical management and risk factor modification. Consider stress test in three months on optimal medical management. Diagnostic RX Recommendation: medical therapy and/or counseling Ventriculography Ejection Fraction: 75.0 % Pressures Phase:Rest AO : 105 / 69 ( 84 ) @ 11:36:00 AM 83 / 68 ( 76 ) @ 11:38:00 AM 103 / 59 ( 77 ) @ 11:45:00 AM 102 / 56 ( 76 ) @ 11:45:00 AM LV : 132 / -9 / 10 @ 11:44:00 AM 127 / -8 / 12 @ 11:45:00 AM 127 / -8 / 11 @ 11:45:00 AM Valves Phase:DefaultPhase AV : 22.0 @ 10:50:21 AM AV Mean Gradient: 20.0 @ 10:50:21 AM Clinical Evaluation EBL: 5mL-10mL Procedural Details Procedure Consent Obtained. Current Diagnosis : Chest Pain. Pre-Procedure Time Out. Identified patient by full name and date of as verbalized by the patient/guarantor. Does the consent match the physician's order: Yes. Accurate & Complete Informed Consent: Yes. Inpatient/Outpatient History & Physical on Chart: Yes. If H&P is completed, is and addenduem needed: No; If yes, is the addendum complete: N/A. Visualize and Verify Site with Patient/Guarantor: N/A. Relevant Radiology Images available: Yes. Pre-op teaching completed and patient verbalized understanding. The risks, benefits, and alternatives of sedation and/or procedure were discussed by physician. The patient agrees to continue. Procedure started. [facility] Clinical Fraility Score: 3: Managing Well. 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 Chest Pain Symptom Assessment: Typical Angina Symptoms. Correct patient, site and procedure confirmed by cath team. Current diagnosis: Chest Pain. PERRLA. Strong, equal hand hygiene coordinator bilaterally. Lungs clear x 5 lobes. IV Site on Arrival: 20 gauge in the right anticubital. IV Fluids: 0.9% NaCl at KVO. 0 mL infused prior to mini lab operator. Pre Procedural Pulses: right dorsalis pedis was Doppled. Pre Procedural Pulses: left dorsalis pedis was 1+. Pre Procedural Pulses: bilateral posterior tibial was 1+. Pre Procedural Pulses: bilateral radial was 3+. Oxygen started at 2liters/min via nasal canula. right groin was prepped with chloroprep then draped in the usual sterile fashion. right radial was prepped with chloroprep then draped in the usual sterile fashion. Baseline sample Acquired. HR: 71 BPM. Physician arrived. Physician scrubbed in. Immediate Pre-Procedure Time Out. Correct Patient: Yes; Correct Procedure: Yes; Correct Site: Yes; Correct Patient Position: Yes; Correct Supplies: Yes; Dried Flammable Prep: Yes; Blood Products Available: N/A;. Lidocaine 1% infiltrated to the right radial. Arterial access obtained. A 5 persian Mello catheter in over wire. Multiple views taken of left coronary artery. Catheter redirected to the RCA. Multiple views taken of right coronary artery. Catheter removed over the exchange wire. A 5 persian Angled Pig catheter in over wire. EDP Sample taken: LV 132/-10,10; HR: 72 BPM; SpO2: 92%. LV gram performed in SIMMS @ 10 mL/second for a total of 30 mL. EDP Sample taken: LV 127/-9,12; HR: 69 BPM; SpO2: 96%. Pullback taken: LV 127/-9,11; AO 103/59(77); Mean: 20mmHg, Peak to Peak: 22mmHg, SEP: 8sec/min; HR: 69 BPM; SpO2: 94%. Catheter removed over the exchange wire. Vital chart was stopped. A TR Band was successful obtaining hemostatsis at the Right Radial artery insertion site. Post Procedure: Pulses reassessed and unchanged. PERRLA. Strong, equal hand hygiene coordinator bilaterally. No VTE prophylaxis required. Medication's Wasted: Lidocaine 1% = 18 mL. Medication's Wasted: Nitro = 49.8 mcg. Medication's Wasted: Heparin = 1000 units. Medication's Wasted: Other = Versed 1 mg. Total IV fluids: 30 mL. 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 Complications: None. Estimated blood loss: 5mL-10mL. Responsiveness - Normal response to verbal stimuli; alert and oriented, PERRLA. Airway - Unaffected, no intervention required; spontaneous ventilation. Circulation: W/N/L, pulses unchanged. Nausea/Vomiting: No. Procedure completed. Patient transferred by wheelchair to CPRU. Access Site Site: Right Radial artery Sheath Size: 6 Fr Hemostasis Method: TR Band Hemostasis Success: Successful Procedure Medications Start: 10:18 AM Stop: 10:18 AM Medication: Versed Amount: 1 mg Route: I.V. Start: 10:18 AM Stop: 10:18 AM Medication: Fentanyl Amount: 50 mcg Route: I.V. Start: 10: AM Stop: : AM Medication: Versed Amount: 1 mg Route: I.V. Start: 10: AM Stop: : AM Medication: Fentanyl Amount: 50 mcg Route: I.V. Start: 10: AM Stop: 10: AM Medication: Versed Amount: 1 mg Route: I.V. Start: 10: AM Stop: : AM Medication: Nitrogylcerin Amount: 200 mcg Route: I.A. Start: 10:34 AM Stop: :34 AM Medication: Heparin Amount: 5000 units Route: I.V. I, the attending physician, have reviewed and verified all procedure medications. Yes, all medications given per verbal order History/Risk Factors Hypertension: Yes Dyslipidemia: Yes Peripheral Arterial Disease (PAD): No Myocardial Infarction (PR): No Obesity: Yes Renal Disease: No Tobacco Use: Current/Recent(w/in 1 year) Prior Interventions PCI: No CABG: No Valve Surgery: No Report Signatures Finalized by Augusto Price MD on 12/07/2024 03:59 PM
--- NOTE | 2024-11-25 10:20 | P.HPUD_ITS ---
Surgery/Procedure H&P Update DATE OF PROCEDURE: November 25, 2024 DATE H&P PERFORMED: 11/13/24 H&P UPDATE INFORMATION: I have reviewed H&P completed within last 30 days, I have examined patient prior to procedure and No changes to prior documentation PREOP DIAGNOSIS: Unstable angina, shortness of breath unknown etiology PLANNED PROCEDURE: Operation Date: 11/25/24 10:00 Proposed Procedures p Cardiac Catheterization - [facility] w/wo LV & coros(Left) - Augusto Price MD PATIENT REASSESSED PRIOR TO SEDATION, WITH NO CHANGE NOTED: Yes PHYSICAL EXAM: alert, oriented x 3, clear to auscultation bilaterally, regular rate & rhythm and operative site marked AIRWAY EVAL/ANESTHESIA PLAN: ASA II, Risks, benefits & alternatives of sedation and/or procedure discussed and Patient agrees to continue as planned ADDITIONAL INFORMATION: All risk-benefit alternative were explained to the patient. Patient understand 2% risk of stroke major bleed. Patient understand 6% risk of minor bleeding using infection hematoma contrast-induced nephropathy. Patient agrees to it and would like to proceed with it
== END 2024-11-25 14:44 | disposition home or self-care (01) ==
PROVIDERS: PCP Family Medicine; Visit Provider Internal Medicine Cardiovascular Disease
DX: I25.10 Atherosclerotic heart disease of native coronary artery without angina pectoris (principal); I25.82 Chronic total occlusion of coronary artery; I10 Essential (primary) hypertension; E78.5 Hyperlipidemia, unspecified; E66.9 Obesity, unspecified; Z68.35 Body mass index [BMI] 35.0-35.9, adult; I73.9 Peripheral vascular disease, unspecified; Z82.49 Family history of ischemic heart disease and other diseases of the circulatory system; E11.9 Type 2 diabetes mellitus without complications; Z79.82 Long term (current) use of aspirin; K21.9 Gastro-esophageal reflux disease without esophagitis; Z79.84 Long term (current) use of oral hypoglycemic drugs; F41.8 Other specified anxiety disorders; F17.210 Nicotine dependence, cigarettes, uncomplicated
CPT/HCPCS: 36415; 80048; 85025; 93458; 99152; 99153; C1769; C1887; C1894; J1644; J2250; J3010; J3490; J7030; J9999; Q0163; Q9967

== ENCOUNTER → 2024-12-17 10:26 | Outpatient (BNVA) | payer OTHER, SELFPAY | PROVIDERS: PCP Family Medicine; Visit Provider Anesthesiology Pain Medicine | DX: M16.0 Bilateral primary osteoarthritis of hip (principal) | CPT/HCPCS: 20610; 77002 ==

== ENCOUNTER 2024-12-25 11:38 | Outpatient (RCR) | payer OTHER, SELFPAY | END 2024-12-29 10:00 | disposition home or self-care (01) | LOC: TPT 11:38 | PROVIDERS: PCP Family Medicine; Visit Provider Orthopaedic Surgery | DX: M54.50 Low back pain, unspecified (principal); G89.29 Other chronic pain | CPT/HCPCS: 20610; 97110; 97140; J1010; J3490; J9999 ==

== ENCOUNTER → 2025-01-13 13:03 | Outpatient (BNVA) | payer OTHER, SELFPAY | PROVIDERS: PCP Family Medicine; Visit Provider Orthopaedic Surgery | DX: M48.062 Spinal stenosis, lumbar region with neurogenic claudication (principal) | CPT/HCPCS: 99213 ==

== ENCOUNTER → 2025-01-19 14:21 | Outpatient (BNVA) | payer OTHER, SELFPAY | PROVIDERS: PCP Family Medicine; Visit Provider Anesthesiology Pain Medicine | DX: M48.062 Spinal stenosis, lumbar region with neurogenic claudication (principal); M47.816 Spondylosis without myelopathy or radiculopathy, lumbar region; M16.0 Bilateral primary osteoarthritis of hip; Z98.890 Other specified postprocedural states | CPT/HCPCS: 99214 ==

== ENCOUNTER → 2025-01-28 14:09 | Outpatient (BNVA) | payer OTHER, SELFPAY | PROVIDERS: PCP Family Medicine; Visit Provider Anesthesiology Pain Medicine | DX: M47.816 Spondylosis without myelopathy or radiculopathy, lumbar region (principal) | CPT/HCPCS: 64493; 64494; 64495; J3490; J9999 ==

== ENCOUNTER → 2025-02-02 10:29 | Outpatient (BNVA) | payer OTHER, SELFPAY | PROVIDERS: PCP Family Medicine; Visit Provider Anesthesiology Pain Medicine | DX: M48.062 Spinal stenosis, lumbar region with neurogenic claudication (principal); M47.816 Spondylosis without myelopathy or radiculopathy, lumbar region; M16.0 Bilateral primary osteoarthritis of hip; Z98.890 Other specified postprocedural states; F17.210 Nicotine dependence, cigarettes, uncomplicated | CPT/HCPCS: 99214 ==

== ENCOUNTER → 2025-02-17 12:12 | Outpatient (BNVA) | payer OTHER, SELFPAY | PROVIDERS: PCP Family Medicine; Visit Provider Anesthesiology Pain Medicine | DX: M47.816 Spondylosis without myelopathy or radiculopathy, lumbar region (principal); Z01.812 Encounter for preprocedural laboratory examination; E11.9 Type 2 diabetes mellitus without complications | CPT/HCPCS: 36416; 64483; 64484; 82962; J1100; J3490; J9999 ==

== ENCOUNTER → 2025-02-24 08:57 | Outpatient (BNVA) | payer OTHER, SELFPAY | PROVIDERS: PCP Family Medicine; Visit Provider Internal Medicine Cardiovascular Disease | DX: I73.9 Peripheral vascular disease, unspecified (principal); I10 Essential (primary) hypertension; I25.10 Atherosclerotic heart disease of native coronary artery without angina pectoris; E78.5 Hyperlipidemia, unspecified; F17.210 Nicotine dependence, cigarettes, uncomplicated; R06.09 Other forms of dyspnea; I25.810 Atherosclerosis of coronary artery bypass graft(s) without angina pectoris | CPT/HCPCS: 99214 ==

== ENCOUNTER 2025-02-27 08:13 | Outpatient (CLI) | payer OTHER, SELFPAY ==
--- NOTE | 2025-02-27 | ECG_ITS ---
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 Interpretive Statements Procedure: A total of 0.4 mg of Lexiscan was infused over 20 seconds. The stress phase was continued for a total of 5 minutes. Sestamibi was injected 20 seconds after the Lexiscan infusion. Findings: Patient's baseline blood pressure was 134/84 mmHg with a heart rate of 59 bpm. There is no significant heart rate or blood pressure change with the Lexiscan injection. Baseline EKG showed sinus bradycardia with heart rate of 59 bpm, possible old inferior and anteroseptal myocardial infarctions. There were no ST or T wave changes. Conclusion: 1. Normal EKG response to Lexiscan infusion without ischemia 2. No Lexiscan induced chest pain or cardiac arrhythmia. 3. Normal blood pressure and heart rate response. 4. Nuclear myocardial perfusion scan pending; see separate report. Electronically Signed On 02-27-2025 18:38:32 CLERK SPECIALIST by Familia Henriquez M.D. [email or web address]
[2025-02-27 08:20] VITALS: BMI 34.8
--- NOTE | 2025-02-27 08:20 | NMCV_ITS ---
NM king perf SPECT r/s* [id number] Alireza De Leon Age: 55 Gender: M : 1970 Exam Date: 02/27/2025 10:00 Ordering Phys: Familia Henriquez MD ([email or web address]) Technologist: SELINA Agustin Exam Location: [facility] Indications: cp STRESS TEST Please see separate stress test report in [facility] for full findings IMAGE PROTOCOL Rest/Stress 1 Lexiscan Day Radiopharmaceutical Dose (mCi) Administration Site Administered by Rest: Tc-99m 11 IV SELINA Agustin Sestamibi Stress:Tc-99m 32.3 IV SELINA Mcclure Sestamibi Rest: 27-Feb-2025 60 Discovery 630 Stress: 27-Feb-2025 30 Discovery 630 0.4mg Lexiscan. Images obtained in supine and prone position. SPECT RESULTS Technical Quality: Good Raw Data Analysis: Normal Image Corrections: No attenuation or motion correction applied Summed Stress Score: 9 Summed Rest Score: 9 Summed Difference Score: 0 PERFUSION FINDINGS There is a large area of severely reduced tracer counts in the apical, mid, and basal inferior and inferolateral wall segments that is partially reversible consistent with infarction with a small to medium sized area of rickey-infarct ischemia. FUNCTIONAL RESULTS (calculated via Gated SPECT) Stress Image LV EF (%): 58 Stress EDV (mL):161 TID: 1.04 Stress ESV (mL):67 FUNCTIONAL FINDINGS: There is hypokinesis of the inferior and inferolateral brooks with globally normal left ventricular systolic function with calculated ejection fraction of 58%. IMPRESSIONS There is a medium sized infarction in the inferior wall with a small to medium sized area of rickey-infarct ischemia. There is hypokinesis of the inferior and inferolateral brooks with globally normal left ventricular systolic function with calculated ejection fraction of 58%. Familia Henriquez MD, FACC (Electronically Signed) Final Date: 27 February 2025 17:21 S
[2025-02-27 10:43] VITALS: BP 124/89; PULSE 73
== END 2025-02-27 08:14 | disposition home or self-care (01) ==
LOC: CDL 08:16
PROVIDERS: PCP Family Medicine; Visit Provider Internal Medicine Cardiovascular Disease
DX: I25.10 Atherosclerotic heart disease of native coronary artery without angina pectoris (principal)
CPT/HCPCS: 36415; 78452; 93017; 96374; A9500; J2785

== ENCOUNTER 2025-03-02 11:11 | Emergency (ER) | payer OTHER, SELFPAY ==
[2025-03-02 11:15] VITALS: BP 116/67; PULSE 79; RESP 16; TEMP 35.8; O2SAT 99
--- NOTE | 2025-03-02 11:30 | XRR_ITS ---
PROCEDURE INFORMATION: Exam: XR Lumbosacral Spine Exam date and time: 03/02/2025 11:35 AM Age: 55 years old Clinical indication: Low back pain; Prior surgery; Surgery date: 6+ months; Surgery type: Lumbar; Back pain form working out TECHNIQUE: Imaging protocol: Radiologic exam of the lumbosacral spine. Views: 2 or 3 views. COMPARISON: No relevant prior studies available. FINDINGS: Bones/joints: There is nite-as-hqybilnf disc space narrowing at every level. Small marginal osteophytes are present from L2 to S1. Alignment is within normal limits. No fractures. No lytic or blastic process identified. Soft tissues: Unremarkable. Vasculature: There is mild atherosclerotic change of the aorta. XR/XR lumbar spine 2-3V* [id number] IMPRESSION: Mild degenerative changes.
--- NOTE | 2025-03-02 11:32 | W.ED.BACK ---
HPI - Back Pain/Injury General: Chief Complaint: Back Pain/Injury Stated Complaint: lower back pain Time Seen by Provider: 03/02/25 11:24 Source: patient Mode of arrival: ambulatory Limitations: no limitations History of Present Illness: 55-year-old male states he been working out last week states that he woke up Sunday with some pain in his low back. States that its worsened throughout the weekend. States very sharp pain in the lower back states much worse with movement improved with rest. He denies any bowel or bladder incontinence. Denies any fevers. Has had a history of back issues in the past Related Data Home Medications ?Medication ?Instructions ?Recorded ?Confirmed lisinopril 40 mg tablet 40 mg PO DAILY 03/02/21 02/24/25 buspirone 10 mg tablet 10 mg PO DAILY 05/13/21 02/24/25 cilostazol 50 mg tablet 50 mg PO BID 05/13/21 02/24/25 ropinirole 5 mg tablet 5 mg PO DAILY 05/13/21 02/24/25 venlafaxine 75 mg tablet 75 mg PO DAILY 05/13/21 02/24/25 chlorthalidone 25 mg tablet 25 mg PO DAILY 01/09/22 02/24/25 metformin 500 mg tablet 500 mg PO DAILY 01/09/22 02/24/25 aspirin 81 mg tablet,delayed 81 mg PO DAILY 02/06/24 02/24/25 release cetirizine 10 mg tablet 10 mg PO DAILY PRN Allergic 02/06/24 02/24/25 Symptoms clopidogrel 75 mg tablet 75 mg PO DAILY 02/06/24 02/24/25 empagliflozin 10 mg tablet 10 mg PO DAILY 02/06/24 02/24/25 fexofenadine 180 mg tablet 180 mg PO DAILY 02/06/24 02/24/25 fluticasone propionate 50 1 spray intranasal DAILY 02/06/24 02/24/25 mcg/actuation nasal spray,suspension glipizide 10 mg tablet 10 mg PO DAILY 02/06/24 02/24/25 pantoprazole 40 mg tablet,delayed 40 mg PO DAILY 02/06/24 02/24/25 release tamsulosin 0.4 mg capsule 0.4 mg PO DAILY 02/06/24 02/24/25 Previous Rx's ?Medication ?Instructions ?Recorded Bone stimulator #1 ea 11/23/21 low profile sport custom insoles #1 ea 11/23/21 with a mortons extension grafite Custom Co-poly Insoles #1 ea 03/01/23 nitroglycerin 0.4 mg sublingual 0.4 mg sublingual Q5M PRN chest 11/12/24 tablet pain #20 tabs isosorbide mononitrate 30 mg 30 mg PO DAILY #30 tabs 12/31/24 tablet,extended release 24 hr baclofen 10 mg tablet 10 mg PO TID spasm #90 tabs 01/19/25 diclofenac sodium 75 mg 75 mg PO ONCE PRN pain #20 tabs 02/02/25 tablet,delayed release rosuvastatin 20 mg tablet 20 mg PO DAILY #90 tabs 02/24/25 Allergies Allergy/AdvReac Type Severity Reaction Status Date / Time No Known Allergies Allergy Verified 02/24/25 09:12 Review of Systems Musc: Reports: back pain PFSH ED PFSH: Medical History Hypertension Hyperlipidemia Depression Anxiety Restless leg GERD (gastroesophageal reflux disease) Hypertension Surgical History No pertinent past surgical history Hx of hernia repair Family History Father CAD (coronary artery disease) Chronic kidney disease (CKD) Hypertension Grandfather Cancer Mother Diabetes Hypertension Denies family history of Clotting disorder Anesthesia complication Bleeding disorder Stroke Social History Smoking and tobacco/nicotine status: current every day tobacco/nicotine user cigarettes Packs smoked per day: 1.5 Years cigarettes smoked: 30 Second hand smoke exposure: No Alcohol intake: current Alcohol intake frequency: few times a month Alcohol type: beer and hard liquor Substance/Drug Use: never Adopted: No Caregiver/support person: Yes Lives independently: Yes Household members: none Marital status: service: Yes status: Medically Discharged/Retired branch: [employer] Current gender identity: Male Special breanne needs: No Physical Exam Const: COMMON NORMALS: no acute distress, patient oriented x3 and healthy appearing HENMT: COMMON NORMALS: normocephalic and atraumatic HEAD & SCALP: normocephalic and atraumatic Neck/C-Spine: COMMON NORMALS: full ROM and supple Chest: COMMONS NORMALS: normal inspection of the chest Resp: COMMON NORMALS: normal respiratory effort Cardio: COMMON NORMALS: regular rate RATE: regular rate Back/Pelvis: OTHER: Tenderness over lower lumbar spine no saddle anesthesia Extremity: COMMON NORMALS: normal to inspection and full ROM Neuro: COMMON NORMALS: patient oriented x3, moves all extremities and no focal motor deficits Skin: COMMON NORMALS: no rashes or lesions noted and no wounds GENERAL SKIN EXAM: no rashes or lesions noted Course Vital Signs: Vital signs: Vital Signs Temperature 96.5 F L 03/02/25 11:15 Pulse Rate 79 03/02/25 11:15 Respiratory Rate 16 03/02/25 11:15 Blood Pressure 116/67 03/02/25 11:15 Pulse Oximetry 99 03/02/25 11:15 Oxygen Delivery Me thod Room Air 03/02/25 11:15 MDM - Back Pain/Injury Medical Decision Making Patient presents for low back pain differential includes lumbar strain, epidural abscess, cauda equina. He has no signs of cauda equina or epidural abscess here no saddle anesthesia likely a lumbar strain x-ray was interpreted by me showed no acute abnormalities he is stable for discharge has an appointment today with his pain specialist he is return if worsening. All radiology interpretation(s) finalized by discharge Discharge Plan Discharge Patient Disposition: Home Clinical Impression: Low back pain Condition: Stable Prescriptions: No Action buspirone 10 mg tablet 10 mg PO DAILY cilostazol 50 mg tablet 50 mg PO BID ropinirole 5 mg tablet 5 mg PO DAILY venlafaxine 75 mg tablet 75 mg PO DAILY lisinopril 40 mg tablet 40 mg PO DAILY clopidogrel 75 mg tablet 75 mg PO DAILY pantoprazole 40 mg tablet,delayed release (DR/EC) 40 mg PO DAILY cetirizine 10 mg tablet 10 mg PO DAILY PRN (Reason: Allergic Symptoms) glipizide 10 mg tablet 10 mg PO DAILY fexofenadine 180 mg tablet 180 mg PO DAILY tamsulosin 0.4 mg capsule 0.4 mg PO DAILY fluticasone propionate 50 mcg/actuation spray,suspension 1 spray intranasal DAILY Rx Instructions: administer into each nostril empagliflozin 10 mg tablet 10 mg PO DAILY aspirin 81 mg tablet,delayed release (DR/EC) 81 mg PO DAILY nitroglycerin 0.4 mg tablet, sublingual 0.4 mg sublingual Q5M PRN (Reason: chest pain) Qty: 20 3RF Rx Instructions: do not exceed 3 doses per episode baclofen 10 mg tablet 10 mg PO TID Qty: 90 0RF diclofenac sodium 75 mg tablet,delayed release (DR/EC) 75 mg PO ONCE PRN (Reason: pain) Qty: 20 0RF metformin 500 mg tablet 500 mg PO DAILY chlorthalidone 25 mg tablet 25 mg PO DAILY rosuvastatin 20 mg tablet 20 mg PO DAILY Qty: 90 3RF (DME) Bone stimulator See Rx Instructions .Route .MEDSUPPLY Qty: 1 0RF Rx Instructions: As directed (DME) low profile sport custom insoles with a mortons extension grafite See Rx Instructions .Route .MEDSUPPLY Qty: 1 0RF Rx Instructions: As directed (DME) Custom Co-poly Insoles See Rx Instructions .Route .MEDSUPPLY Qty: 1 0RF Rx Instructions: As directed by [facility] isosorbide mononitrate 30 mg tablet extended release 24 hr 30 mg PO DAILY Qty: 30 4RF Discharge Orders: Discharge ED (Routine); Ordered 03/02/25 Ordered By: Gee Frost Referrals: Brittaney Celeste MD [Primary Care Provider, Family Practice] Discharge Diet: Advance as tolerated Discharge Activity: Resume usual activity Patient Instructions: Back Pain (ED) Print Language: Uzbek Coding Level of Care Code ED Media Planner for Stanton Rashede
[2025-03-02] MEDS: HYDROcodone-acetaminophen 7.5-325 mg Tablet 1 TAB PO (11:56)
== END 2025-03-02 12:22 | disposition home or self-care (01) ==
PROVIDERS: Emergency Provider Emergency Medicine; PCP Family Medicine
DX: M54.50 Low back pain, unspecified (principal); Z79.02 Long term (current) use of antithrombotics/antiplatelets; Z79.82 Long term (current) use of aspirin; Z79.84 Long term (current) use of oral hypoglycemic drugs; F17.210 Nicotine dependence, cigarettes, uncomplicated; E78.5 Hyperlipidemia, unspecified; I10 Essential (primary) hypertension
CPT/HCPCS: 72100; 96372; 99214; 99284; J1885; J9999

== ENCOUNTER 2025-03-11 06:03 | Outpatient (CLI) | payer OTHER, SELFPAY ==
--- NOTE | 2025-03-11 06:15 | USCV_ITS ---
Moises Alireza Age: 55 Gender: M : 1970 Exam Date: 03/11/2025 06:20 Ordering Phys: Familia Henriquez MD ([email or web address]) Technologist: RUKHSANA Exam Location: [facility] [place] Indication: cp sob BP: 120 / 72 HR: 64 Rhythm: Sinus Technical Quality: Adequate MEASUREMENTS (Male / Female) Normal Values 2D ECHO LV Diastolic Diameter PLAX 4.4 cm 4.2 - 5.9 / 3.9 - 5.3 cm IVS Diastolic Thickness 1.4 cm 0.6 - 1.0 / 0.6 - 0.9 cm IVS Systolic Thickness 2.2 cm LVPW Diastolic Thickness 1.2 cm 0.6 - 1.0 / 0.6 - 0.9 cm LVPW Systolic Thickness 2.0 cm LVOT Diameter 2.0 cm LV Ejection Fraction 2D Teich 64.0 % LV Ejection Fraction MOD 4C 77.5 % LV Ejection Fraction MOD 2C 69.2 % LV Ejection Fraction 2C AL 69.0 % LA Diameter 3.9 cm RA Systolic Volume 4C AL 46.4 ml RA Systolic Volume 4C MOD 46.5 ml LA Sys Volume AL 73.9 cm cubed LA Sys Volume Index AL 30.3 cm cubed/m squared Aorta at Sinotubular Diameter 2.7 cm IVC Diameter 1.4 cm M-MODE LA Ao Ratio MM 1.2 AV Cusp Separation MM 2.4 cm DOPPLER AV Peak Velocity 140.0 cm/s LVOT Peak Velocity 102.0 cm/s AV Area Cont Eq vti 2.7 cm squared AV Area Cont Eq pk 2.4 cm squared MV Peak Velocity 113.0 cm/s MV Area PHT 3.4 cm squared Mitral E to A Ratio 1.4 TR Peak Velocity 237.0 cm/s TR Peak Gradient 22.5 mmHg TV Peak E Velocity 77.0 cm/s PV Peak Velocity 104.0 cm/s FINDINGS Left Ventricle Normal left ventricular cavity size and systolic function. Left ventricular ejection fraction is 69%. Normal left ventricular diastolic function. Mild concentric left ventricular hypertrophy. Right Ventricle Normal right ventricular size and systolic function. Right Atrium Normal right atrial size. Left Atrium Normal left atrial size. IA Septum Normal appearance of the interatrial septum. Mitral Valve Normal mitral valve structure. No mitral valve stenosis or regurgitation. Aortic Valve Normal aortic valve structure. No aortic valve stenosis or regurgitation. Tricuspid Valve Normal tricuspid valve structure. Trace regurgitation. Normal pulmonary pressure. Pulmonic Valve Normal pulmonic valve structure. No pulmonic valve stenosis or regurgitation. Pericardium No pericardial effusion. Aorta Normal diameter of the aortic root and ascending thoracic aorta. IVC Normal IVC diameter. CONCLUSIONS Normal left ventricular cavity size and systolic function, EF 69% Mild concentric left ventricular hypertrophy Normal right ventricular size and systolic function. No significant valvular abnormalities. Familia Henriquez MD, FACC (Electronically Signed) Final Date: 18 March 2025 17:24 S
== END 2025-03-11 06:04 | disposition home or self-care (01) ==
LOC: RAD 06:03
PROVIDERS: PCP Family Medicine; Visit Provider Internal Medicine Cardiovascular Disease
DX: R06.09 Other forms of dyspnea (principal); I51.7 Cardiomegaly
CPT/HCPCS: 93306

== ENCOUNTER 2025-03-16 06:48 | Outpatient (CLI) | payer OTHER, SELFPAY ==
--- NOTE | 2025-03-16 07:15 | MR_ITS ---
WS: [id number] MRI LUMBAR SPINE NONCONTRAST HISTORY: Low back pain. Prior compression surgery lumbar spine February 2024. COMPARISON: 10/13/2024 TECHNIQUE: Sagittal and axial multisequence imaging is submitted. Small central disc osteophyte protrusions at C3-4, C5-6 and C6-7. No cord compression. Straightening of the normal lumbar lordosis. L1 hemangioma. Degenerative disc disease is reidentified at L3-4 with osteitis inferior endplate of L3 which is unchanged. No new fractures or marrow edema. Conus terminates normally at L1. L1-L2: Mild disc bulging with a shallow RIGHT paracentral disc protrusion and osteophyte. No interval change. Mild bilateral foraminal stenosis persists. Very slight encroachment upon the traversing RIGHT L2 nerve root. L2-L3: Diffuse annular disc bulging with a RIGHT foraminal disc osteophyte, bilateral ligamentum flavum and facet arthritis. RIGHT foraminal disc osteophyte is contacting the exiting RIGHT L2 nerve root. Moderate RIGHT and mild LEFT foraminal stenosis with no interval change. L3-L4: Moderate diffuse annular disc bulging with impingement upon the ventral thecal sac. RIGHT hemilaminectomy defect. Small amount of fluid in the facet joints with moderate facet joint arthritis. Disc osteophyte disease extending into the foramen. At least moderate bilateral foraminal stenosis, greater on the RIGHT. Mild central and subarticular recess stenosis is unchanged. L4-L5: Diffuse annular disc bulge with osteophytic ridging, ligamentum flavum and facet arthritis. RIGHT hemilaminectomy. Central disc protrusion appears slightly larger in size. There is mild encroachment upon the central canal and subarticular recesses. There is contact on the traversing L5 nerve roots. Mild to moderate bilateral foraminal stenosis. L5-S1: Diffuse annular disc bulging with osteophytic ridging. Bilateral facet arthritis. Very small LEFT paracentral disc protrusion appears to be new. RIGHT hemilaminectomy defect. Moderate facet arthritis. Moderate RIGHT and mild LEFT foraminal stenosis due to disc osteophyte disease and facet arthritis. Reidentified is a partially visualized cyst in the LEFT kidney. MR/MR lumbar spine wo con* [id number] IMPRESSION: 1. Status post RIGHT hemilaminectomy defects at L3-4, L4-5 and L5-S1. 2. Moderate bilateral foraminal stenosis at L3-4 greater on the RIGHT and mild central and subarticular recess stenosis. 3. Central disc protrusion at L4-5 is slightly larger as compared to the prior study. Mild to moderate bilateral foraminal stenosis and mild central and suba rticular recess stenosis. 4. Moderate RIGHT and mild LEFT foraminal stenosis at L2-3. RIGHT foraminal di sc osteophyte contributing to the stenosis. There is contact on the exiting RIG HT L2 nerve root. 5. Mild bilateral foraminal stenosis at L1-2. 6. Moderate RIGHT and mild LEFT foraminal stenosis at L5-S1.
== END 2025-03-16 06:49 | disposition home or self-care (01) ==
LOC: RAD 06:49
PROVIDERS: PCP Family Medicine; Visit Provider Anesthesiology Pain Medicine
DX: M51.16 Intervertebral disc disorders with radiculopathy, lumbar region (principal); M50.123 Cervical disc disorder at C6-C7 level with radiculopathy; M48.061 Spinal stenosis, lumbar region without neurogenic claudication; M51.26 Other intervertebral disc displacement, lumbar region; M51.360 Other intervertebral disc degeneration, lumbar region with discogenic back pain only; D18.09 Hemangioma of other sites; N28.1 Cyst of kidney, acquired; Z98.890 Other specified postprocedural states; M25.78 Osteophyte, vertebrae; M48.07 Spinal stenosis, lumbosacral region; M50.21 Other cervical disc displacement, high cervical region; M50.222 Other cervical disc displacement at C5-C6 level; M50.223 Other cervical disc displacement at C6-C7 level; M24.28 Disorder of ligament, vertebrae; M51.27 Other intervertebral disc displacement, lumbosacral region; M47.897 Other spondylosis, lumbosacral region; M51.379 Other intervertebral disc degeneration, lumbosacral region without mention of lumbar back pain or lower extremity pain; M96.89 Other intraoperative and postprocedural complications and disorders of the musculoskeletal system; M47.896 Other spondylosis, lumbar region
CPT/HCPCS: 72148